=== PATIENT | female | born 1975 | race Asian ===

== ENCOUNTER 2018-02-03 09:30 | Inpatient (IN) | payer OTHER, SELFPAY ==
[~2018-02-03] VITALS: Ht 157.5 cm; Wt 63.5 kg
[2018-02-03] MEDS ORDERED: FERR325E14 PO (10:09)
[2018-02-03] MEDS ORDERED: PREN-380 PO (10:09)
[2018-02-03] MEDS ORDERED: METHYLERGONOVINE 0.2 MG/ML AMP IM PRN ×2 (10:15→20:45)
[2018-02-03] MEDS ORDERED: OXYTOCIN 10 UNITS/ML VIAL IM SCH (10:15)
[2018-02-03] MEDS ORDERED: MISOPROSTOL 25 MCG TAB VG ONE (10:15)
[2018-02-03] MEDS ORDERED: AMPICILLIN 2,000 MG in NACL 0.9% MINI-BAG PLUS 100 ML IV SCH (10:15)
[2018-02-03] MEDS ORDERED: OXYTOCIN 20 UNITS in LACTATED RINGERS 1,000 ML IV SCH (10:15)
[2018-02-03] MEDS ORDERED: NALBUPHINE 10 MG/ML AMP IVP PRN (10:15)
[2018-02-03] MEDS ORDERED: CARBOPROST 250 MCG/ML AMP IM PRN (10:15)
[2018-02-03] MEDS ORDERED: PROMETHAZINE 25 MG/ML VIAL IVP PRN (10:15)
[2018-02-03 10:25] VITALS: BP 98/62
[2018-02-03] MEDS ORDERED: AMPICILLIN 2,000 MG VIAL ONE ×3 (10:26→18:14)
[2018-02-03] MEDS: LACTATED RINGERS 1,000 ML IV SCH ×2 (10:29→13:46)
[2018-02-03 11:28] LABS: APPEARANCE,URINE CLEAR (CLEAR); BILIRUBIN,URINE NEGATIVE (NEGATIVE); BLOOD, URINE 3+ (NEGATIVE); COLOR,URINE YELLOW (YELLOW); LEUKOCYTE ESTERASE ,URINE NEGATIVE (NEGATIVE); NITRITE, URINE NEGATIVE (NEGATIVE); PH,URINE 5.5 (5.0-9.0); UGLUCOSE NEGATIVE (NEGATIVE)
[2018-02-03 11:44] LABS: RBC,URINE 0-5 (RARE) /HPF (0-5); WBC,URINE 0-5 (RARE) /HPF (0-5)
[2018-02-03 11:44] LABS: BASOPHILS % (AUTO) 0.2 % (0.0-2.0); EOSINOPHILS % (AUTO) 0.4 % (0.0-4.0); HEMATOCRIT 37.7 % (36-48); HEMOGLOBIN 12.5 g/dL (12.0-16.0); LYMPHOCYTES # (AUTO) 1.1 K/uL (2.5-16.5); LYMPHOCYTES % (AUTO) 17.8 % (20.5-51.1); MEAN CORPUSCULAR HEMOGLOBIN 32 pg (27-31); MEAN CORPUSCULAR HGB CONC 33 g/dL (33-37); MEAN CORPUSCULAR VOLUME 96.6 fL (80-94); MONOCYTES # (AUTO) 0.6 K/uL (0.8-1.0); MONOCYTES % (AUTO) 9.6 % (1.7-9.3); NEUTROPHILS # (AUTO) 4.3 K/uL (1.8-7.7); PLATELET COUNT (AUTO) 155 K/uL (140-450); RED BLOOD CELL COUNT(AUTO) 3.91 MIL/uL (4.20-5.40); RED CELL DISTRIBUTION WIDTH 17.9 % (11.6-13.7)
[2018-02-03 11:53] LABS: ANION GAP 14.1 (8-16); CARBON DIOXIDE 25.6 mmol/L (21-32); CREATININE 0.6 mg/dL (0.6-1.3); POTASSIUM 3.7 mmol/L (3.5-5.1)
[2018-02-03 11:59] LABS: TOTAL BILIRUBIN 0.3 mg/dL (0.0-1.0)
[2018-02-03] MEDS ORDERED: AMPICILLIN 1,000 MG in NACL 0.9% MINI-BAG PLUS 50 ML IV SCH (12:00)
[2018-02-03] MEDS ORDERED: BUPIVACAINE 0.125%/NS PREMIX 250 ML EPI SCH (13:25)
[2018-02-03] MEDS ORDERED: BUPIVACAINE 0.125%/NS PREMIX 250 ML ONE (13:31)
[2018-02-03] MEDS ORDERED: AMPICILLIN 2000 MG IV SCH (16:00)
[2018-02-03] MEDS ORDERED: [UNRECOGNIZED DRUG - OTHER] IV SCH (16:00)
[2018-02-03] MEDS ORDERED: AMPICILLIN 2,000 MG in NACL 0.9% 100 ML IV SCH (18:00)
[2018-02-03] MEDS ORDERED: OXYTOCIN 10 UNITS/ML VIAL ONE (18:14)
[2018-02-03] MEDS ORDERED: oxyCODONE/APAP 5/325 MG 1 TAB TAB PO PRN (20:45)
[2018-02-03] MEDS ORDERED: OXYTOCIN 10 UNITS/ML VIAL IM PRN (20:45)
[2018-02-03] MEDS ORDERED: BENZOCAINE/MENTHOL 20%-0.5% 60 GM CAN TP PRN (20:45)
[2018-02-03] MEDS ORDERED: MEASLES, MUMPS, AND RUBELLA 1 VIAL SQVAC PRN (20:45)
[2018-02-03] MEDS ORDERED: TEMAZEPAM 15 MG CAP PO PRN (20:45)
[2018-02-03] MEDS ORDERED: IBUPROFEN 800 MG TAB PO PRN (20:45)
[2018-02-03] MEDS ORDERED: HYDROcodone/APAP 5/325 MG 1 TAB TAB PO PRN (20:45)
[2018-02-03] MEDS ORDERED: DOCUSATE SOD/SENNA 50/8.6 MG 1 TAB PO SCH (21:00)
[2018-02-03] MEDS ORDERED: oxyCODONE/APAP 5/325 MG 1 TAB TAB ONE (22:27)
[2018-02-04 06:38] LABS: HEMATOCRIT 32.3 % (36-48)
[2018-02-04] MEDS ORDERED: LACTATED RINGERS 1,000 ML IV SCH ×3 (07:47→11:50)
--- NOTE | 2018-02-04 11:46 | NUR ---
PATIENT HAS BEEN SCREENED AND CATEGORIZED LOW NUTRITION RISK. PATIENT WILL BE SEEN WITHIN 7 DAYS OF ADMISSION. 02/10/[address]
[2018-02-04] MEDS ORDERED: DOCUSATE SOD/SENNA 50/8.6 MG 1 TAB PO SCH (21:00)
[2018-02-05] MEDS ORDERED: IBUP-2213 PO (10:49)
== END 2018-02-05 16:35 | disposition home or self-care (01) | DRG 775 ==
LOC: MLD 09:30 → MFCC 23:20
PROVIDERS: ADMIT Obstetrics & Gynecology; ATTEND Obstetrics & Gynecology
PROC: 10E0XZZ Delivery of Products of Conception, External Approach (ICD-10-PCS; principal; 2018-02-03)
PROC: 10907ZC Drainage of Amniotic Fluid, Therapeutic from Products of Conception, Via Natural or Artificial Opening (ICD-10-PCS; 2018-02-03)
PROC: 3E0R3BZ Introduction of Anesthetic Agent into Spinal Canal, Percutaneous Approach (ICD-10-PCS; 2018-02-03)
PROC: 00HU33Z Insertion of Infusion Device into Spinal Canal, Percutaneous Approach (ICD-10-PCS; 2018-02-03)
PROC: 0W8NXZZ Division of Female Perineum, External Approach (ICD-10-PCS; 2018-02-03)
PROC: 3E0234Z Introduction of Serum, Toxoid and Vaccine into Muscle, Percutaneous Approach (ICD-10-PCS; 2018-02-03)
DX: O80 Encounter for full-term uncomplicated delivery (principal); Z37.0 Single live birth; Z3A.39 39 weeks gestation of pregnancy; Z23 Encounter for immunization
CPT/HCPCS: 36415; 51702; 80053; 81001; 85018; 85025; 86592; 86886; 86900; 86901; 90715; J0290; J2590; J3490; J7120